=== PATIENT | female | born 1995 | race Caucasian/White ===

== ENCOUNTER 2024-04-11 11:43 | Emergency (ER) | payer OTHER ==
[~2024-04-11] VITALS: Ht 165.1 cm; Wt 85.0 kg
[2024-04-11] MEDS ORDERED: AMOX-CLAV 875-1 EACH PO (12:57)
[2024-04-11] MEDS ORDERED: Amoxicillin/Clavulanate Pota 875 MG TAB PO ONE (13:00)
== END 2024-04-11 13:05 | disposition home or self-care (01) ==
LOC: ED 11:43
DX: O26.892 Other specified pregnancy related conditions, second trimester (principal); K08.89 Other specified disorders of teeth and supporting structures; R22.0 Localized swelling, mass and lump, head; Z3A.21 21 weeks gestation of pregnancy

== ENCOUNTER 2024-10-10 20:46 | Emergency (ER) | payer OTHER ==
[~2024-10-10] VITALS: Ht 165.1 cm; Wt 77.1 kg
[~2024-10-10 20:46] MED LIST: AMOX-CLAV 875-1 EACH PO
[2024-10-10] MEDS ORDERED: LORazepam 1 MG TAB PO ONE (21:00)
[2024-10-10 22:22] LABS: BASO # 0.0 10*3/uL (0.0-0.1); BASO % 0.1 % (0.0-1.0); EOS # 0.2 10*3/uL (0.0-0.4); EOS % 2.2 % (1.0-4.0); MEAN CELL VOLUME 91.0 fl (81.0-99.0); MEAN CORPUSCULAR HGB 29.8 pg (27.0-31.0); MEAN PLATELET VOLUME 12.4 fl (9.6-12.3); MONO # 0.5 10*3/uL (0.1-1.0); MONO % 6.7 % (3.0-9.0); NEUT # 2.8 10*3/uL (2.3-7.9); NEUT % 41.3 % (47.0-73.0); NUCLEATED RED BLOOD CELL 0.0 % (0.0-0.0); NUCLEATED RED BLOOD CELL 0.0 10*3/uL (0.0-0.0); PLATELET COUNT AUTOMATED 170 10*3/uL (130-400); RED CELL DISTRI WIDTH 14.5 % (0-14.5)
[2024-10-10 22:37] LABS: BILIRUBIN Negative (Negative); BLOOD Negative (Negative); CLARITY Clear (Clear); COLOR Yellow (Yellow); KETONE Trace (Negative); LEUKO ESTERASE Negative (Negative); NITRITE Negative (Negative); PH 6.0 (4.5-8.0); SPECIFIC GRAVITY >= 1.030 (1.001-1.030); UROBILINOGEN 1.0 E.U./dl (0.0-1.0)
[2024-10-10 22:43] LABS: BUN 23 mg/dl (9-23); SGPT/ALT 21 U/L (5-49)
[2024-10-10 22:47] LABS: EPITHELIAL CELLS 16-20; WBC 0-2 wbc/hpf (0-5)
[2024-10-10] MEDS ORDERED: CEPHALEXIN 500 MG CAP PO ONE (23:30)
[2024-10-10] MEDS ORDERED: CEPHALEXIN500 M1 PO (23:34)
== END 2024-10-10 23:40 | disposition home or self-care (01) ==
LOC: ED 20:46
PROVIDERS: Nurse Practitioner
DX: O86.00 Infection of obstetric surgical wound, unspecified (principal)

== ENCOUNTER 2024-12-20 21:05 | Emergency (ER) | payer OTHER ==
[~2024-12-20] VITALS: Ht 165.1 cm; Wt 79.4 kg
[~2024-12-20 21:05] MED LIST changes: +CEPHALEXIN500 M1 PO
[2024-12-20] MEDS ORDERED: Ondansetron Hydrochloride 4 MG TAB SL ONE (23:10)
[2024-12-20] MEDS ORDERED: Acetaminophen/Oxycodone 5 MG/325 MG TABLET PO ONE (23:10)
[2024-12-20] MEDS ORDERED: NAPROSYN500 MG PO (23:28)
== END 2024-12-20 23:53 | disposition home or self-care (01) ==
LOC: ED 21:05
DX: S30.0XXA Contusion of lower back and pelvis, initial encounter (principal); X58.XXXA Exposure to other specified factors, initial encounter; Y93.89 Activity, other specified; Y92.89 Other specified places as the place of occurrence of the external cause; Y99.8 Other external cause status